=== PATIENT | male | born 1975 | race Caucasian/White ===

== ENCOUNTER 2016-08-19 19:52 | Emergency (ER) | payer SELFPAY ==
[2016-08-19 20:10] VITALS: BP 172/96
[2016-08-19] MEDS ORDERED: LORazepam TAB(*) 1 MG PO ONE (20:50)
--- NOTE | 2016-08-19 21:15 | UC ---
Shortness of Breath HPI - HPI Summary HPI Summary: 4 DAYS OF WAXING AND WANING MID STERNAL "CHEST BURNING". WHOLE BODY FEELS FLUSHED. HAS SOB AT REST - WORSE WITH EXERTION. NO NAUSEA, DIAPHORESIS, NUMBNESS OR TINGLING. STATES HE HAS HAD THIS BEFORE AND TAKES LORAZEPAM WHICH HELPS. DIAGNOSED WITH ANXIETY. TAKES IT RARELY. 15 TABS SINCE 10/2015. TOOK LAST PILL AT [facility] 4 DAYS AGO AND COULD NOT GET INTO PCP. DRINKS ABOUT 12 BEERS DAILY. TODAY ONLY HAD 4. DENIES ANY H/O DTs. IS NOT TREMULOUS. - History of Current Complaint Chief Complaint: UCChestPain Stated Complaint: CHEST BURNING Time Seen by Provider: 08/19/16 20:32 Hx Obtained From: Patient Onset/Duration: Sudden Onset, Lasting Days, Still Present Timing: Constant Current Severity: Moderate Dyspnea At: Rest Aggrevating Factors: Movement Associated Signs & Symptoms: Negative: Cough (Productive), Cough (Nonproductive) , Cough (Bloody Sputum), Wheezing, Chest Pain w/Cough, Chest Pain Unrelated to Cough, Fever, Chills, Diaphoresis, Dizzy - Allergy/Home Medications Allergies/Adverse Reactions: Allergies Allergy/AdvReac Type Severity Reaction Status Date / Time No Known Allergies Allergy Verified 08/19/16 20:10 PMH/Surg Hx/FS Hx/Imm Hx Endocrine History Of: Denies: Diabetes, Thyroid Disease Cardiovascular History Of: Denies: Cardiac Disorders, Hypertension, Pacemaker/ICD, Myocardial Infarction Respiratory History Of: Denies: COPD, Asthma GI/ History Of: Denies: Gastroesophageal Reflux, Ulcer, Renal Disease Neurological History Of: Denies: CVA, Dementia, Seizures Psychological History Of: Reports: Anxiety Other History Of: Negative For: Anticoagulant Therapy - Surgical History Surgical History: Yes Surgery Procedure, Year, and Place: RIGHT pinky finger - Family History Known Family History: Positive: Hypertension - Social History Alcohol Use: Daily Alcohol Amount: 12 pack per day Substance Use Type: Marijuana Substance Use Comment - Amount & Last Used: 1-2 TIMES/WEEK Smoking Status (MU): Current Every Day Smoker Type: Cigarettes Amount Used/How Often: 1 ppd Length of Time of Smoking/Using Tobacco: 23 years Have You Smoked in the Last Year: Yes Household Exposure Type: Cigarettes - Immunization History Most Recent Tetanus Shot: Up to date Review of Systems Constitutional: Negative Skin: Other - FLUSHED Respiratory: Shortness Of Breath Cardiovascular: Chest Pain Psychological: Anxious All Other Systems Reviewed And Are Negative: Yes Physical Exam Triage Information Reviewed: Yes Appearance: Well-Nourished, Pain Distress - MODERATE PAIN. PT CLUTCHING CHEST AND BREATHING HEAVILY Vital Signs: Initial Vital Signs Temp 98.5 F 08/19/16 20:06 Pulse 92 08/19/16 20:06 Resp 18 08/19/16 20:06 BP 172/96 08/19/16 20:06 Pulse Ox 95 08/19/16 20:06 Vital Signs Reviewed: Yes Eyes: Positive: Conjunctiva Clear ENT: Positive: Hearing grossly normal Neck: Positive: Supple, Nontender, No Lymphadenopathy Respiratory: Positive: Lungs clear, Normal breath sounds, Other: - BREATHING HEAVILY Cardiovascular: Positive: Tachycardia Abdomen Description: Positive: Nontender, Soft Musculoskeletal: Positive: No Edema Neurological: Positive: Alert Psychological: Positive: Age Appropriate Behavior Skin: Positive: Other - FACE FLUSHED BUT NOT DIAPHORETIC OR CLAMMY Diagnostics - EKG Cardiac Rate: NL - 93 BPM Cardiac Rhythm: Sinus: Normal Ectopy: PVCs ST Segment: Normal - CONSIDERABLE ARTIFACT NOTED Shortness of Breath Dx - Course Course Of Treatment: ADVISED TRASNFER TO ER GIVEN CONCERN FOR CARDIAC/ RESPIRATORY PATHOLOGY. PT STATES HE HAS HAD THIS BEFORE AND HAD A W/U. DIAGNOSED WITH ANXIETY AND GIVEN LORAZEPAM WHICH HELPS. IS DECLINING TRANSFER TO ER. DISCUSSED POSSIBLE POOR OUTCOMES INCLUDING FOR FAILURE TO GO TO ER IMMEDIATELY. PT VOICES UNDERSTANDING AND CONTINUES TO DECLINE. - Differential Dx/Diagnosis Provider Diagnoses: DYSPNEA/CHEST TIGHTNESS/ANXIETY Discharge - Discharge Plan Condition: Stable Disposition: AGAINST MEDICAL ADVICE Prescriptions: LORazepam TAB(*) [Ativan 1 MG TAB (*)] 1 mg PO Q8H PRN #12 tab MDD 3 PRN Reason: Anxiety Patient Education Materials: Dyspnea (ED) Additional Instructions: YOUR PRESENTATION IS CONCERNING FOR CARDIAC/RESPIRATORY INVOLVEMENT AND REQUIRES ER EVALUATION. YOU HAVE DECLINED. PLEASE GO TO THE ER WITHOUT FAIL IF YOUR SYMPTOMS DO NOT RESOLVE WITH THE ATIVAN YOU EXPECT. FOLLOW-UP WITH YOUR PCP DR. NAVA IN [place].
== END 2016-08-19 21:03 | disposition left against medical advice (07) ==
LOC: UCEAST 19:52
DX: R06.00 Dyspnea, unspecified (principal); R07.89 Other chest pain; F41.9 Anxiety disorder, unspecified; F17.210 Nicotine dependence, cigarettes, uncomplicated
CPT/HCPCS: 93005; 99212; A9270-GY; G0463

== ENCOUNTER 2016-10-11 11:23 | Emergency (ER) | payer SELFPAY ==
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
[2016-10-11 12:04] VITALS: BP 159/107
== END 2016-10-11 12:00 | disposition left against medical advice (07) ==
LOC: UCEAST 11:23
DX: Z72.0 Tobacco use (principal); R55 Syncope and collapse; F10.20 Alcohol dependence, uncomplicated; R07.9 Chest pain, unspecified; Z53.20 Procedure and treatment not carried out because of patient's decision for unspecified reasons
CPT/HCPCS: 99212; G0463

== ENCOUNTER 2016-10-11 12:24 | Emergency (ER) | payer SELFPAY ==
[2016-10-11] MEDS ORDERED: Aspirin Low Dose CHEW TAB* 81 MG PO ONE (13:01)
--- NOTE | 2016-10-11 13:28 | RAD ---
INDICATION: Chest pain COMPARISON: Similar chest x-ray dated November 03, 2015 TECHNIQUE: Single AP portable view of the chest was obtained. FINDINGS: Image quality is compromised due to the relative inferiority of a portable chest x-ray. The heart and mediastinum exhibit normal size and contour. The lungs are grossly clear. There is no evidence of a large pleural effusion. Visualized bones are normal for the patient's age. IMPRESSION: No radiographic evidence for acute cardiopulmonary abnormality on this portable chest x-ray.
[2016-10-11 13:41] LABS: Hematocrit 49 % (42-52); Hemoglobin 16.7 g/dl (14.0-18.0); Mean Corpuscular HGB Conc 34 g/dl (31-36); Mean Corpuscular Hemoglobin 33 pg (27-31); Mean Corpuscular Volume 97 fL (80-94); Mean Platelet Volume 7 um3 (7.4-10.4); Red Blood Count 5.05 10^6/ul (4.0-5.4); Red Cell Distribution Width 12 % (10.5-15)
[2016-10-11 13:56] LABS: Albumin 4.1 g/dL (3.2-5.2); BUN/Creatinine Ratio 9.2 (8-20); Calcium 9.4 mg/dL (8.6-10.3); EGFR African American 123.2 (>60); EGFR Non-African American 95.8 (>60); Globulin 3.1 g/dL (2-4); Magnesium 2.2 mg/dL (1.9-2.7); Potassium 4.2 mmol/L (3.5-5.0); Total Bilirubin 0.6 mg/dL (0.2-1.0); Total Protein 7.2 g/dL (6.4-8.9)
[2016-10-11 13:58] LABS: Troponin I 0.01 ng/mL (<0.04)
[2016-10-11 14:37] LABS: TSH (Thyroid Stimulating Horm) 2.31 mcIU/mL (0.34-5.60)
[2016-10-11 17:13] VITALS: BP 120/76
--- NOTE | 2016-10-11 18:08 | ED ---
Neno Srinivasan Alok, scribed for Az Bernal MD on 10/11/16 at 1312 . HPI Chest Pain - HPI Summary HPI Summary: 41M presents to the ED for syncope episode today while in his garage lasting 5 seconds. Pt reportedly was working on his car when he started to feel hot and diaphoretic. The pt then sat down and lost consciousness for what felt like 5 seconds, unwitnessed by anyone else. Pt also notes a chest burning sensation diffusely throughout his entire anterior chest which is still ongoing. Chest burning has been accompanied by SOB. Pt denies palpitations. Pt last had an episode of chest burning one year ago and was dx with anxiety. Pt smokes 1.5-2 ppd and drinks 12 beers every day. Pt additionally smokes marijuana every day. - History of Current Complaint Chief Complaint: EDChestPainROMI Time Seen by Provider: 10/11/16 12:35 Hx Obtained From: Patient Onset/Duration: Started Minutes Ago, Atraumatic, Still Present Timing: Constant - chest "burning", Lasting Seconds - syncope Initial Severity: Moderate Pain Intensity: 7 Pain Scale Used: 0-10 Numeric Chest Pain Location: Diffuse, Left Anterior, Right Anterior Character: Burning Aggravating Factor(s): Nothing Alleviating Factor(s): Nothing Associated Signs and Symptoms: Positive: Chest Pain, Shortness of Breath, Diaphoresis, Other: - syncope - Allergy/Home Medications Allergies/Adverse Reactions: Allergies Allergy/AdvReac Type Severity Reaction Status Date / Time No Known Allergies Allergy Verified 10/11/16 13:08 PMH/Surg Hx/FS Hx/Imm Hx Endocrine/Hematology History: Denies: Hx Anticoagulant Therapy, Hx Diabetes, Hx Thyroid Disease Cardiovascular History: Denies: Hx Angina, Hx Coronary Artery Disease, Hx Hypercholesterolemia, Hx Hypertension, Hx Myocardial Infarction, Hx Pacemaker/ICD, Hx Valvular Heart Disease Respiratory History: Denies: Hx Asthma, Hx Chronic Obstructive Pulmonary Disease (COPD) GI History: Denies: Hx Ulcer History: Denies: Hx Renal Disease Neurological History: Denies: Hx Dementia, Hx Seizures Psychiatric History: Reports: Hx Anxiety, Hx Substance Abuse - ETOH - Surgical History Surgery Procedure, Year, and Place: RIGHT pinky finger - Immunization History Date of Tetanus Vaccine: 2002 Date of Influenza Vaccine: none Infectious Disease History: No Infectious Disease History: Denies: Hx Clostridium Difficile, Hx Hepatitis, Hx Human Immunodeficiency Virus (HIV), Hx of Known/Suspected MRSA, Hx Shingles, Hx Tuberculosis, Hx Known/ Suspected VRE, Hx Known/Suspected VRSA, History Other Infectious Disease, Traveled Outside the [place] in Last 30 Days - Family History Known Family History: Positive: Hypertension Negative: Cardiac Disease, Diabetes - Social History Occupation: Employed Full-time Lives: With Family Alcohol Use: Daily - He drinks now a 6 pack a day down from a 30 pack of beer/ day. Alcohol Amount: 12 pack per day Substance Use Type: Reports: Marijuana Substance Use Comment - Amount & Last Used: 1-2 TIMES/WEEK Smoking Status (MU): Current Every Day Smoker Type: Cigarettes Amount Used/How Often: 1.5-2 ppd Length of Time of Smoking/Using Tobacco: 23 years Have You Smoked in the Last Year: Yes Review of Systems Positive: Skin Diaphoresis. Negative: Fever Positive: Chest Pain. Negative: Palpitations Positive: Shortness Of Breath Positive: Syncope All Other Systems Reviewed And Are Negative: Yes Physical Exam - Summary Physical Exam Summary: VITAL SIGNS: Reviewed. GENERAL: Patient is a well-developed and nourished male who is lying comfortable in the stretcher. Patient is not in any acute respiratory distress. HEAD AND FACE: No signs of trauma. No ecchymosis, hematomas or skull depressions. No sinus tenderness. EYES: PERRLA, EOMI x 2, No injected conjunctiva, no nystagmus. EARS: Hearing grossly intact. Ear canals and tympanic membranes are within normal limits. MOUTH: Oropharynx within normal limits. NECK: Supple, trachea is midline, no adenopathy, no JVD, no carotid bruit, no c- spine tenderness, neck with full ROM. CHEST: Symmetric, no tenderness at palpation LUNGS: Clear to auscultation bilaterally. No wheezing or crackles. CVS: Regular rate and rhythm, S1 and S2 present, no murmurs or gallops appreciated. ABDOMEN: Soft, non-tender. No signs of distention. No rebound no guarding, and no masses palpated. Bowel sounds are normal. EXTREMITIES: FROM in all major joints, no edema, no cyanosis or clubbing. NEURO: Alert and oriented x 3. No acute neurological deficits. Speech is normal and follows commands. SKIN: Dry and warm Triage Information Reviewed: Yes Vital Signs On Initial Exam: Initial Vitals Temp Pulse Resp BP Pulse Ox 98.1 F 98 20 146/100 98 10/11/16 12:30 10/11/16 12:30 10/11/16 12:30 10/11/16 12:30 10/11/16 12:30 Vital Signs Reviewed: Yes Diagnostics - Vital Signs Vital Signs Temp Pulse Resp BP Pulse Ox 10/11/16 12:30 98.1 F 98 20 146/100 98 - Laboratory Lab Results: Lab Results 10/11/16 10/11/16 10/11/16 Range/Units 13:32 13:32 13:32 WBC 11.0 H (3.5-10.8) 10^3/ul RBC 5.05 (4.0-5.4) 10^6/ul Hgb 16.7 (14.0-18.0) g/dl Hct 49 (42-52) % MCV 97 H (80-94) fL MCH 33 H (27-31) pg MCHC 34 (31-36) g/dl RDW 12 (10.5-15) % Plt Count 254 (150-450) 10^3/ul MPV 7 L (7.4-10.4) um3 Neut % (Auto) 77.3 (38-83) % Lymph % (Auto) 13.9 L (25-47) % Tensas % (Auto) 7.0 (1-9) % Eos % (Auto) 0.5 (0-6) % Baso % (Auto) 1.3 (0-2) % Absolute Neuts (auto) 8.5 H (1.5-7.7) 10^3/ul Absolute Lymphs (auto) 1.5 (1.0-4.8) 10^3/ul Absolute Monos (auto) 0.8 (0-0.8) 10^3/ul Absolute Eos (auto) 0.1 (0-0.6) 10^3/ul Absolute Basos (auto) 0.1 (0-0.2) 10^3/ul Absolute Nucleated RBC 0 10^3/ul Nucleated RBC % 0 APTT 29.9 (26.0-36.3) seconds Sodium 131 L (133-145) mmol/L Potassium 4.2 (3.5-5.0) mmol/L Chloride 100 L (101-111) mmol/L Carbon Dioxide 25 (22-32) mmol/L Anion Gap 6 (2-11) mmol/L BUN 8 (6-24) mg/dL Creatinine 0.87 (0.67-1.17) mg/dL Est GFR ( Amer) 123.2 (>60) Est GFR (Non-Af Amer) 95.8 (>60) BUN/Creatinine Ratio 9.2 (8-20) Glucose 94 (70-100) mg/dL Lactic Acid (0.5-2.0) mmol/L Calcium 9.4 (8.6-10.3) mg/dL Magnesium 2.2 (1.9-2.7) mg/dL Total Bilirubin 0.60 (0.2-1.0) mg/dL AST 28 (13-39) U/L ALT 29 (7-52) U/L Alkaline Phosphatase 61 (34-104) U/L Total Creatine Kinase 182 (10-223) U/L CK-MB (CK-2) 3.9 (0.6-6.3) ng/mL Troponin I 0.01 (<0.04) ng/mL B-Natriuretic Peptide ( - 100) pg/mL Total Protein 7.2 (6.4-8.9) g/dL Albumin 4.1 (3.2-5.2) g/dL Globulin 3.1 (2-4) g/dL Albumin/Globulin Ratio 1.3 (1-3) TSH 2.31 (0.34-5.60) mcIU/mL 10/11/16 10/11/16 10/11/16 Range/Units 13:32 13:32 16:05 WBC (3.5-10.8) 10^3/ul RBC (4.0-5.4) 10^6/ul Hgb (14.0-18.0) g/dl Hct (42-52) % MCV (80-94) fL MCH (27-31) pg MCHC (31-36) g/dl RDW (10.5-15) % Plt Count (150-450) 10^3/ul MPV (7.4-10.4) um3 Neut % (Auto) (38-83) % Lymph % (Auto) (25-47) % Tensas % (Auto) (1-9) % Eos % (Auto) (0-6) % Baso % (Auto) (0-2) % Absolute Neuts (auto) (1.5-7.7) 10^3/ul Absolute Lymphs (auto) (1.0-4.8) 10^3/ul Absolute Monos (auto) (0-0.8) 10^3/ul Absolute Eos (auto) (0-0.6) 10^3/ul Absolute Basos (auto) (0-0.2) 10^3/ul Absolute Nucleated RBC 10^3/ul Nucleated RBC % APTT (26.0-36.3) seconds Sodium (133-145) mmol/L Potassium (3.5-5.0) mmol/L Chloride (101-111) mmol/L Carbon Dioxide (22-32) mmol/L Anion Gap (2-11) mmol/L BUN (6-24) mg/dL Creatinine (0.67-1.17) mg/dL Est GFR ( Amer) (>60) Est GFR (Non-Af Amer) (>60) BUN/Creatinine Ratio (8-20) Glucose (70-100) mg/dL Lactic Acid 1.1 (0.5-2.0) mmol/L Calcium (8.6-10.3) mg/dL Magnesium (1.9-2.7) mg/dL Total Bilirubin (0.2-1.0) mg/dL AST (13-39) U/L ALT (7-52) U/L Alkaline Phosphatase (34-104) U/L Total Creatine Kinase (10-223) U/L CK-MB (CK-2) (0.6-6.3) ng/mL Troponin I 0.01 (<0.04) ng/mL B-Natriuretic Peptide 26 ( - 100) pg/mL Total Protein (6.4-8.9) g/dL Albumin (3.2-5.2) g/dL Globulin (2-4) g/dL Albumin/Globulin Ratio (1-3) TSH (0.34-5.60) mcIU/mL Result Diagrams: 10/11/16 13:32 10/11/16 13:32 Lab Statement: Any lab studies that have been ordered have been reviewed, and results considered in the medical decision making process. - Radiology CXR Xray Interpretation: Positive (See Comments) - IMPRESSION: No radiographic evidence for acute cardiopulmonary abnormality on this portable chest x-ray. Radiology Interpretation Completed By: Radiologist - EKG 1237 Cardiac Rate: NL - 86 bpm EKG Rhythm: Sinus Rhythm EKG Interpretation: No ST elevations Chest Pain Course/Dx - Course Course Of Treatment: 41M presents to the ED for syncope episode today while in his garage lasting 5 seconds. Pt reportedly was working on his car when he started to feel hot and diaphoretic. The pt then sat down and lost consciousness for what felt like 5 seconds, unwitnessed by anyone else. Pt also notes a chest burning sensation diffusely throughout his entire anterior chest which is still ongoing. Chest burning has been accompanied by SOB. Pt denies palpitations. Pt last had an episode of chest burning one year ago and was dx with anxiety. Pt smokes 1.5-2 ppd and drinks 12 beers every day. Pt additionally smokes marijuana every day. Blood work within nml limits except WBC 11 H. 1st Troponin shows 0.01 while 2nd Troponin taken shows 0.01 as well. Pt was given IV fluids and rehydrated. Afterward pt has no futher complaints and is asymtomatic. Will discharge home with dx of vasovagal syncope and instructions to FU with PCP. - Chest Pain Differential Diagnosis/HQI/PQRI: Angina, CHF, Chest Wall, GI Disease, Other: - Syncope - Diagnoses Provider Diagnoses: Vasovagal syncope Discharge - Discharge Plan Condition: Stable Disposition: HOME Patient Education Materials: Syncope (ED) Referrals: No Primary Care Phys,NOPCP [Primary Care Provider] - [facility] [place] PHYSICIAN REFERRAL [Outside] The documentation as recorded by the Neno castaneda Alok accurately reflects the service I personally performed and the decisions made by me, Az Bernal MD.
== END 2016-10-11 17:12 | disposition home or self-care (01) ==
LOC: ED 12:24
DX: R55 Syncope and collapse (principal); R07.9 Chest pain, unspecified; R06.02 Shortness of breath
CPT/HCPCS: 36415; 71010; 80053; 82550; 82553; 83605; 83735; 83880; 84443; 84484; 85025; 85730; 93005; 99283; A9270-GY

== ENCOUNTER 2018-03-01 12:25 | Emergency (ER) | payer SELFPAY ==
[2018-03-01] MEDS ORDERED: NS 0.9% 1000 ML* 1,000 ML IV ONE (12:34)
[2018-03-01 12:40] VITALS: BP 159/120
--- NOTE | 2018-03-01 12:46 | UC ---
Cardiac HPI - HPI Summary HPI Summary: 42 yo male presents with chest pain for the last 4 days. Initially it started as a mild ache in his epigastric area. Earlier today he developed significantly worse pain and discomfort that he has difficulty describing. The pain is now located in the epigastric area and radiates to the left and right. Has been getting worse since this morning. 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 He feels mildly short of breath and tightness in his throat. He denies fever, chills, n/v /d, dizziness. He smokes daily and has a history of alcohol abuse. - History of Current Complaint Chief Complaint: UCChestPain Stated Complaint: CHEST PAIN Time Seen by Provider: 03/01/18 12:26 Hx Obtained From: Patient Onset/Duration: Sudden Onset Initial Severity: Moderate Current Severity: Severe Pain Intensity: 10 - Allergy/Home Medications Allergies/Adverse Reactions: Allergies Allergy/AdvReac Type Severity Reaction Status Date / Time No Known Allergies Allergy Verified 10/11/16 13:08 PMH/Surg Hx/FS Hx/Imm Hx Psychological History: Anxiety Other History Of: Negative For: Anticoagulant Therapy - Surgical History Surgical History: Yes Surgery Procedure, Year, and Place: RIGHT pinky finger - Family History Known Family History: Positive: Hypertension Negative: Cardiac Disease, Diabetes - Social History Occupation: Employed Full-time Lives: With Family Alcohol Use: Daily Alcohol Amount: 12 pack per day Substance Use Type: Marijuana Substance Use Comment - Amount & Last Used: 1-2 TIMES/WEEK Smoking Status (MU): Current Every Day Smoker Type: Cigarettes Amount Used/How Often: 1.5-2 ppd Length of Time of Smoking/Using Tobacco: 23 years Have You Smoked in the Last Year: Yes Household Exposure Type: Cigarettes - Immunization History Most Recent Tetanus Shot: Up to date Review of Systems Constitutional: Negative Skin: Negative Eyes: Negative ENT: Negative Respiratory: Shortness Of Breath Cardiovascular: Chest Pain Gastrointestinal: Abdominal Pain Genitourinary: Negative Neurovascular: Negative Neurological: Negative Psychological: Negative All Other Systems Reviewed And Are Negative: Yes Physical Exam - Summary Physical Exam Summary: GENERAL: Appears anxious. Obese. Diaphoretic SKIN: No rashes, sores, lesions, or open wounds. NECK: Supple. Nontender. Airway patent CHEST: CTAB. No r/r/w. No accessory muscle use. CV: Tachycardia. Without m/r/g. Pulses intact. Cap refill <2seconds ABDOMEN: Soft. Mild TTP epigastrum. No CVA tenderness. Bowel sounds present NEURO: Alert. PSYCH: Anxious Triage Information Reviewed: Yes Vital Signs: Initial Vital Signs Temp 99.2 F 03/01/18 12:34 Pulse 112 03/01/18 12:34 Resp 16 03/01/18 12:34 BP 159/120 03/01/18 12:34 Pulse Ox 99 03/01/18 12:34 Vital Signs Reviewed: Yes - Assessment/Plan Course Of Treatment: EKG sinus tach a 107bpm. Inferior q waves. No ST changes as read by Dr. Villagomez. Left arm BP: 159/120. Right arm BP: 198/101. The ddx of his pain is quite extensive. I am most concerned about ACS, aortic dissection , PE, hepatitis, pancreatitis, or other biliary pathology. Report called to Marti LAZO in ED at 1235. An IV was started and ambulance called. 1L NS started by EMS and pt left via ambulance in stable condition. - Clinical Impression Provider Diagnoses: Chest pain. Abnormal EKG. Elevated BP Discharge - Sign-Out/Discharge Documenting (check all that apply): Patient Departure All imaging exams completed and their final reports reviewed: No Studies - Discharge Plan Condition: Stable Disposition: TRANS HIGHER LVL OF CARE FAC Referrals: No Primary Care Phys,NOPCP [Primary Care Provider] - - Billing Disposition and Condition Condition: STABLE Disposition: Trans Higher Lvl of Care Fac
== END 2018-03-01 12:56 | disposition short-term general hospital (02) ==
LOC: UCEAST 12:25
DX: R07.89 Other chest pain (principal); R00.0 Tachycardia, unspecified; R03.0 Elevated blood-pressure reading, without diagnosis of hypertension; F17.210 Nicotine dependence, cigarettes, uncomplicated
CPT/HCPCS: 93005; 99213; G0463

== ENCOUNTER 2018-03-01 13:20 | Observation (INO) | payer SELFPAY ==
--- NOTE | 2018-03-01 14:00 | ED ---
Abdominal Pain/Male - HPI Summary HPI Summary: Patient is a 42-year-old male with significant alcohol use over the past several years and smoking history presenting to the ED with CC of abdomen doubling in size over the past 4 months. He states he drinks approximately a 12 pack a day. Endorses approximately 10 cigarettes per day which she has cut back from 2 packs per day recently and has smoked for 20 years. Denies any other significant PMH. He endorses some chest pressure which is worse with sitting due to E distended abdomen pressing on the diaphragm. Denies any chest pain while standing up. Denies any shortness of breath. Denies any neck pain, headache, visual disturbances. He denies any nausea, vomiting, diarrhea, constipation. Denies any odynophagia or dysphagia. He continues to eat and drink well. He denies changing his diet in any way. He is unsure if he has gained weight as he has not checked. He denies any fevers, sweats, chills. He was seen at urgent care earlier this morning and was sent over here for further evaluation due to his distended and painful abdomen. - History of Current Complaint Chief Complaint: EDAbdPain Stated Complaint: CHEST PAIN Time Seen by Provider: 03/01/18 13:22 Hx Obtained From: Patient Onset/Duration: Gradual Onset Timing: Constant Severity Initially: Severe Severity Currently: Severe Pain Intensity: 5 Pain Scale Used: 0-10 Numeric Location: Other - abdomen Radiates: No Aggravating Factor(s): Nothing Alleviating Factor(s): Nothing Associated Signs And Symptoms: Negative: Constipation, Blood in Stool, Urinary Symptoms, Decreased Appetite, Vomiting, Diarrhea - Risk Factors Testicular Torsion: Negative Cardiac Risk Factors: Negative - Allergies/Home Medications Allergies/Adverse Reactions: Allergies Allergy/AdvReac Type Severity Reaction Status Date / Time No Known Allergies Allergy Verified 10/11/16 13:08 Home Medications: Home Medications LORazepam TAB(*) [Ativan 1 MG TAB (*)] 1 mg PO Q8H PRN 03/01/18 [History Confirmed 03/01/18] PMH/Surg Hx/FS Hx/Imm Hx Previously Healthy: Yes Endocrine/Hematology History: Denies: Hx Anticoagulant Therapy, Hx Diabetes, Hx Thyroid Disease Cardiovascular History: Denies: Hx Angina, Hx Coronary Artery Disease, Hx Hypercholesterolemia, Hx Hypertension, Hx Myocardial Infarction, Hx Pacemaker/ICD, Hx Valvular Heart Disease Respiratory History: Denies: Hx Asthma, Hx Chronic Obstructive Pulmonary Disease (COPD) GI History: Denies: Hx Ulcer History: Denies: Hx Renal Disease Neurological History: Denies: Hx Dementia, Hx Seizures Psychiatric History: Reports: Hx Anxiety, Hx Substance Abuse - ETOH - Surgical History Surgery Procedure, Year, and Place: RIGHT pinky finger - Immunization History Date of Tetanus Vaccine: 2002 Date of Influenza Vaccine: none Hx Pertussis Vaccination: No Immunizations Up to Date: Yes Infectious Disease History: No Infectious Disease History: Denies: Hx Clostridium Difficile, Hx Hepatitis, Hx Human Immunodeficiency Virus (HIV), Hx of Known/Suspected MRSA, Hx Shingles, Hx Tuberculosis, Hx Known/ Suspected VRE, Hx Known/Suspected VRSA, History Other Infectious Disease, Traveled Outside the [place] in Last 30 Days - Family History Known Family History: Positive: Hypertension Negative: Cardiac Disease, Diabetes - Social History Occupation: Employed Full-time Lives: With Family Alcohol Use: Daily Alcohol Amount: 12 pack per day Hx Substance Use: Yes Substance Use Type: Reports: Marijuana Substance Use Comment - Amount & Last Used: 1-2 TIMES/WEEK Hx Tobacco Use: Yes Smoking Status (MU): Current Every Day Smoker Type: Cigarettes Amount Used/How Often: 1.5-2 ppd Length of Time of Smoking/Using Tobacco: 23 years Have You Smoked in the Last Year: Yes Review of Systems Negative: Fever, Chills, Fatigue, Skin Diaphoresis Negative: Photophobia, Blurred Vision Negative: Palpitations, Chest Pain Negative: Shortness Of Breath Positive: Abdominal Pain, Other - severe distension. Negative: Vomiting, Diarrhea, Nausea Genitourinary: Negative Positive: no symptoms reported, see HPI Negative: Arthralgia, Myalgia Negative: Rash, Bruising Negative: Headache, Weakness, Paresthesia, Numbness Positive: Anxious All Other Systems Reviewed And Are Negative: Yes Physical Exam Triage Information Reviewed: Yes Vital Signs On Initial Exam: Initial Vitals Pulse Resp BP Pulse Ox 113 27 186/116 98 03/01/18 13:17 03/01/18 13:17 03/01/18 13:17 03/01/18 13:17 Vital Signs Reviewed: Yes Appearance: Positive: No Pain Distress, Well-Nourished Skin: Positive: Warm, Skin Color Reflects Adequate Perfusion Head/Face: Positive: Normal Head/Face Inspection Eyes: Positive: EOMI, GLORIA, Conjunctiva Clear Neck: Positive: Supple, No Lymphadenopathy Respiratory/Lung Sounds: Positive: Clear to Auscultation, Breath Sounds Present Cardiovascular: Positive: RRR, Pulses are Symmetrical in both Upper and Lower Extremities Abdomen Description: Positive: Distended - severe distension, unable to assess for ascites as patient is unable to lie flat or sit Musculoskeletal: Positive: Strength/ROM Intact Neurological: Positive: Sensory/Motor Intact, Alert, Oriented to Person Place, Time, Speech Normal Psychiatric: Positive: Anxious Diagnostics - Vital Signs Vital Signs Temp Pulse Resp BP Pulse Ox 03/01/18 13:31 109 20 98 03/01/18 13:22 99.5 F 107 26 186/116 99 03/01/18 13:17 113 27 186/116 98 - Laboratory Result Diagrams: 03/01/18 13:55 03/01/18 13:55 Lab Statement: Any lab studies that have been ordered have been reviewed, and results considered in the medical decision making process. Re-Evaluation - Re-Evaluation First Eval Re-Evaluation Time: 19:00 Change: Unchanged Comment: CP radiating to throat, 5/10 intensity Abdominal Pain Fem Course/Dx - Course Course Of Treatment: During the course of treatment, the patient is evaluated for distended abdomen. Labs obtained. CT abdomen and pelvis with contrast obtained. He is unable to sit down for an evaluation as he is having abdominal pain and distention. Abdomen is very rigid on physical exam, bowel sounds are decreased throughout. Lungs CTA, RRR. Patient appears diaphoretic and tearful on arrival. Has a history of anxiety, took Ativan prior to arrival which did not improve his anxiety symptoms. CT abd/pelvis: IMPRESSION: 1. NO EVIDENCE FOR ACUTE FINDING OR CAUSE FOR THE PATIENT'S ABDOMINAL PAIN IS SEEN. 2. HEPATIC STEATOSIS. Signed out to Dr. Vizcarra at 5:45p pending CXR and US of the gallbladder. - Diagnoses Provider Diagnoses: Chest pain, unspecified Discharge - Sign-Out/Discharge Documenting (check all that apply): Patient Departure Signing out patient TO: Sarthak Vizcarra All imaging exams completed and their final reports reviewed: Yes - Discharge Plan Condition: Fair Disposition: ADMITTED TO [facility] - Billing Disposition and Condition Condition: FAIR Disposition: Admitted to [facility]
[2018-03-01 14:03] LABS: ABS Basophils 0.1 10^3/ul (0-0.2); ABS Eosinophils 0 10^3/ul (0-0.6); ABS Lymphocytes 1.2 10^3/ul (1.0-4.8); ABS Monocytes 0.6 10^3/ul (0-0.8); ABS Neutrophils 7.7 10^3/ul (1.5-7.7); ABS Nucleated RBC 0 10^3/ul; Eosinophil % 0.4 % (0-6); Hematocrit 48 % (42-52); Hemoglobin 16.9 g/dl (14.0-18.0); Lymphocyte % 12.1 % (25-47); Mean Corpuscular HGB Conc 35 g/dl (31-36); Mean Corpuscular Hemoglobin 34 pg (27-31); Mean Corpuscular Volume 97 fL (80-94); Mean Platelet Volume 6.8 fL (7.4-10.4); Nucleated Red Blood Cells % 0.1; Platelet Count 245 10^3/ul (150-450); Red Blood Count 4.95 10^6/ul (4.00-5.40); Red Cell Distribution Width 13 % (10.5-15); White Blood Count 9.6 10^3/ul (3.5-10.8)
[2018-03-01 14:08] LABS: INR 0.96 (0.77-1.02)
[2018-03-01 14:23] LABS: EGFR Non-African American 92.9 (>60)
[2018-03-01] MEDS ORDERED: Iohexol 300* (CONTRAST) 10 ML SDV IV ONE (14:48)
[2018-03-01 16:50] LABS: Urine Appearance Clear; Urine Blood Negative (Negative); Urine Color Yellow; Urine Ketones 1+ (Negative); Urine Protein Negative (Negative); Urine Specific Gravity 1.017 (1.010-1.030); Urine Urobilinogen Negative (Negative)
[2018-03-01] MEDS: oxyCODONE/Acetamin 5/325 MG* TAB PO ONE ×2 (17:50→17:57)
[2018-03-01] MEDS ORDERED: Metoprolol Tartrate IV* 1 MG/ML 5 ML VIAL IV ONE (19:02)
[2018-03-01] MEDS ORDERED: Nitroglycerin TAB 0.4 MG* 0.4 MG TAB SL ONE (19:06)
[2018-03-01] MEDS ORDERED: Aspirin 81 mg CHEW TAB* 81 MG TAB.CHEW PO ONE (19:06)
--- NOTE | 2018-03-01 19:12 | ED ---
Progress - Progress Note Progress Note: Receiving sign out pending imaging results. His abdomen/pelvis CT revealed: 1. no evidence for acute finding or cause for the patient's abdominal pain is seen 2. hepatic steatosis. His gallbladder US revealed no acute sonographic pathology. His CXR revealed: at 19:00 upon re-eval he had CP radiating to his throat which he rates as a 5/ 10. He has a strong FHx of CAD reflected in the UC note. His diagnosis is CP- unspecified. He will be admitted to Dr. Ramirez hospitalist. - EKG/XRAY/CT EKG: NSR - 86 Comments: at 18:48 the EKG revealed normal sinus rhtyhm at 86 bpm. Re-Evaluation - Re-Evaluation First Eval Re-Evaluation Time: 19:00 Change: Unchanged Comment: CP radiating to throat, 5/10 intensity Course/Dx - Course Course Of Treatment: Receiving sign out pending imaging results. His EKG was normal. His abdomen/pelvis CT revealed: 1. no evidence for acute finding or cause for the patient's abdominal pain is seen 2. hepatic steatosis. His gallbladder US revealed no acute sonographic pathology. His CXR was normal. Upon re-eval he had CP radiating to his throat which he rates as a 5/10. He has a strong FHx of CAD reflected in the UC note. His diagnosis is CP-unspecified. He will be admitted to Dr. Sesay. - Diagnoses Provider Diagnoses: Chest pain, unspecified - Provider Notifications Discussed Care Of Patient With: Selena Sesay Time Discussed With Above Provider: 19:00 Instructed by Provider To: Admit As Inpatient Discharge - Sign-Out/Discharge Documenting (check all that apply): Patient Departure - Admit - Discharge Plan Condition: Fair Disposition: ADMITTED TO [facility] - Attestation Statements Document Initiated by Scribe: Yes Documenting Scribe: Wilmer Vazquez Provider For Whom Scribe is Documenting (Include Credential): Sarthak Vizcarra MD Scribe Attestation: Wilmer Srinivasan, scribed for Sarthak Vizcarra MD on 03/01/18 at 2022.
[2018-03-01] MEDS ORDERED: Nitroglycerin 2% OINT* 1 GM PAK ONE (20:10)
[2018-03-01] MEDS: Nitroglycerin 2% OINT* 1 GM PAK TOPICAL SCH (20:18)
[2018-03-01] MEDS ORDERED: hydrALAZINE IV* 20 MG/ML VIAL IV SLOW PU PRN (20:57)
[2018-03-01] MEDS ORDERED: LORazepam TAB(*) 1 MG PO SCH (21:00)
[2018-03-01] MEDS: Folic Acid TAB* 1 MG PO SCH (21:27)
[2018-03-01] MEDS: Multivitamins/Minerals TAB PO SCH (21:27)
[2018-03-01] MEDS: Thiamine TAB* 100 MG TAB PO SCH (21:27)
--- NOTE | 2018-03-01 22:20 | ADMNOTE ---
Subjective Date of Service: 03/01/18 Interval History: code status full this is an admission h/p hpi this is a 42 yr old wm with hx of chronic etoh dep will consume 12 beers daily family hx of htn presented to er with c/o of chest pain radiating to his throat since last . his symptom did not improve ---> went to urgent---> transfer here afterwards. pain described as sharp to pressured type pushing towards his throat constantly starting last . pain level has been 5---> 9/10. sitting down will make it worse lying flat and standing up makes it better. pain has been associated with sob. intial ekg and 2 trop were neg ---> got asa and sl nitro from er. phx chronic etoh consumption with 12 tall beers daily last drink was yesterday at 8 pm no hx of pancreatitis or etoh withdraw sz cig smoker 10 cig daily morbid obesity marijuana use pshx hx of finger fx due to trauma social hx cig 10 cig daily etoh 12 beers daily tall uses daily marijuana use works as a painter and body mechanic apprentice fhx htn Family History: Findings - htn Social History: Findings - as above Past Medical History: Findings - as above Review of Systems - Measurements Intake and Output: Intake and Output Last 24 Hours 02/27/18 02/28/18 03/01/18 03/02/18 07:59 06:59 06:59 06:59 Intake Total 0 Balance 0 Weight 275 lb 4.8 oz Intake: IV Fluids 0 fluids 0 pertinent as hpi - Review of Systems General Comments: pertinent as per hpi Objective Active Medications: Folic Acid (Folvite Tab*) 1 mg PO DAILY [facility] Last Admin: 03/01/18 21:27 Dose: 1 mg Hydralazine HCl (Apresoline Iv*) 5 mg IV SLOW PU Q6H PRN PRN Reason: BLOOD PRESSURE Lorazepam (Ativan Tab(*)) 1 - 2 mg PO .PER WA PROTOCOL [facility]; Protocol Multivitamins/Minerals (Theragran/Minerals Tab*) 1 tab PO DAILY [facility] Last Admin: 03/01/18 21:27 Dose: 1 tab Nitroglycerin (Nitroglycerin 2% Oint*) 1 inch TOPICAL Q6H [facility]; Protocol Last Admin: 03/01/18 20:18 Dose: 1 inch Thiamine HCl (Vitamin B-1 Tab*) 100 mg PO DAILY [facility] Last Admin: 03/01/18 21:27 Dose: 100 mg Vital Signs - 8 hr 03/01/18 03/01/18 03/01/18 15:00 15:18 15:48 Temperature Pulse Rate 110 102 118 Respiratory 15 15 17 Rate Blood Pressure 145/103 138/103 (mmHg) O2 Sat by Pulse 96 97 97 Oximetry 03/01/18 03/01/18 03/01/18 16:00 16:18 16:47 Temperature Pulse Rate 106 107 101 Respiratory 16 24 12 Rate Blood Pressure 150/105 176/104 (mmHg) O2 Sat by Pulse 97 97 98 Oximetry 03/01/18 03/01/18 03/01/18 17:00 17:18 17:48 Temperature Pulse Rate 99 102 95 Respiratory 14 22 20 Rate Blood Pressure 146/123 185/99 (mmHg) O2 Sat by Pulse 99 98 97 Oximetry 03/01/18 03/01/18 03/01/18 18:00 18:18 18:48 Temperature Pulse Rate 92 88 87 Respiratory 16 20 13 Rate Blood Pressure 165/105 152/97 (mmHg) O2 Sat by Pulse 97 97 98 Oximetry 03/01/18 03/01/18 03/01/18 19:00 19:18 19:19 Temperature Pulse Rate 85 98 101 Respiratory 10 13 15 Rate Blood Pressure 185/111 201/124 (mmHg) O2 Sat by Pulse 99 99 98 Oximetry 03/01/18 03/01/18 03/01/18 19:43 19:49 20:00 Temperature Pulse Rate 90 81 93 Respiratory 10 12 14 Rate Blood Pressure 193/116 194/113 (mmHg) O2 Sat by Pulse 97 97 98 Oximetry 03/01/18 03/01/18 03/01/18 20:04 20:19 20:34 Temperature Pulse Rate 84 77 82 Respiratory 9 12 13 Rate Blood Pressure 178/120 183/109 177/112 (mmHg) O2 Sat by Pulse 96 95 Oximetry 03/01/18 03/01/18 20:59 21:32 Temperature 98.3 F 97.5 F Pulse Rate 83 91 Respiratory 16 18 Rate Blood Pressure 187/110 166/99 (mmHg) O2 Sat by Pulse 97 99 Oximetry Oxygen Devices in Use Now: None, Nasal Cannula Appearance: nad Eyes: No Scleral Icterus, PERRLA Ears/Nose/Mouth/Throat: NL Teeth, Lips, Gums, Clear Oropharnyx, Mucous Membranes Moist Neck: NL Appearance and Movements; NL JVP, Trachea Midline, No Thyroid Enlargement, Masses Respiratory: Symmetrical Chest Expansion and Respiratory Effort, Clear to Auscultation Cardiovascular: NL Sounds; No Murmurs; No JVD, RRR, No Edema Abdominal: - - + bs soft + tenderness upon the epigastric area with no rebound no guarding Extremities: No Edema, - - able to raise ue and le against gravity Skin: No Rash or Ulcers Neurological: Alert and Oriented x 3, NL Sensation, NL Muscle Strength and Tone Result Diagrams: 03/02/18 06:06 03/02/18 06:06 EKG Data: ekg ns no acute st t change seen Assess/Plan/Problems-Billing Assessment: 42 yr old wm with fhx of htn but morbid obesity chronic etoh dep 12 tall beers daily presented to er with epigastric pain radiating towards to throat for four days. this pain will be better with position trop has been neg but pt is still a cig smoker - Patient Problems (1) Chest pain Current Visit: Yes Status: Acute Code(s): R07.9 - CHEST PAIN, UNSPECIFIED SNOMED Code(s): 85680190 Comment: etiology unclear but has been a cig smoker and is htn now asa 325 ordered npo after midnight for stress test echo to eval any pericardial effusion ? cardio consult (2) HTN (hypertension) Current Visit: Yes Status: Acute Code(s): I10 - ESSENTIAL (PRIMARY) HYPERTENSION SNOMED Code(s): 91849697 Comment: sbp was 170 tachycardia but after ativan prn for etoh withdraw and nitro paste went down to 150 start Norvasc, Echo ordered (3) Morbid obesity Current Visit: Yes Status: Acute Code(s): E66.01 - MORBID (SEVERE) OBESITY DUE TO EXCESS CALORIES SNOMED Code(s): 192601594 Comment: ck a1c in am ck lipid outpt sleep study (4) Cigarette smoker Current Visit: Yes Status: Acute Code(s): F17.210 - NICOTINE DEPENDENCE, CIGARETTES, UNCOMPLICATED SNOMED Code(s): 35552057 Comment: supportive care for now dep whether he is ready to quit (5) Epigastric abdominal pain Current Visit: Yes Status: Acute Code(s): R10.13 - EPIGASTRIC PAIN SNOMED Code(s): 13260407 Comment: ct of abd and abd US both neg lipase and lft neg---> ppi ordered as a trial will also start Carafate suspect ETOH related gastritis (6) History of marijuana use Current Visit: Yes Status: Acute Code(s): Z87.898 - PERSONAL HISTORY OF OTHER SPECIFIED CONDITIONS SNOMED Code(s): 835461641 Comment: supportive care (7) EtOH dependence Current Visit: Yes Status: Acute Code(s): F10.20 - ALCOHOL DEPENDENCE, UNCOMPLICATED SNOMED Code(s): 34500746 Comment: cont wam protocol
[2018-03-01] MEDS ORDERED: Omeprazole CAP* 20 MG PO ONE (23:36)
[2018-03-02] MEDS ORDERED: traMADol TAB* 50 MG PO PRN (00:35)
[2018-03-02] MEDS: Nitroglycerin 2% OINT* 1 GM PAK TOPICAL SCH ×3 (01:16→13:11)
[2018-03-02] MEDS: Aspirin EC TAB* 325 MG PO SCH ×2 (05:30→08:38)
[2018-03-02 06:25] LABS: ABS Basophils 0.1 10^3/ul (0-0.2); ABS Eosinophils 0.1 10^3/ul (0-0.6); ABS Lymphocytes 1.4 10^3/ul (1.0-4.8); ABS Monocytes 0.6 10^3/ul (0-0.8); ABS Nucleated RBC 0 10^3/ul; Eosinophil % 1.6 % (0-6); Hematocrit 44 % (42-52); Hemoglobin 15.6 g/dl (14.0-18.0); Lymphocyte % 15.4 % (25-47); Mean Corpuscular HGB Conc 35 g/dl (31-36); Mean Corpuscular Hemoglobin 34 pg (27-31); Mean Corpuscular Volume 97 fL (80-94); Mean Platelet Volume 6.8 fL (7.4-10.4); Nucleated Red Blood Cells % 0.1; Platelet Count 242 10^3/ul (150-450); Red Blood Count 4.55 10^6/ul (4.00-5.40); Red Cell Distribution Width 13 % (10.5-15); White Blood Count 9.3 10^3/ul (3.5-10.8)
[2018-03-02 06:45] LABS: EGFR Non-African American 94.1 (>60)
[2018-03-02] MEDS ORDERED: Omeprazole CAP* 20 MG PO SCH (07:30)
[2018-03-02] MEDS ORDERED: NS 0.9% 1000 ML* 1,000 ML IV SCH (07:45)
[2018-03-02] MEDS ORDERED: amLODIPine TAB* 5 MG PO ONE (08:06)
--- NOTE | 2018-03-02 08:32 | PN ---
Subjective Date of Service: 03/02/18 Interval History: Pt c/o "bloating", normal BM's. Epigastric abd pain worse with inspiration radiating to mid chest. Denies N/V , bu unable to eat x 3 days due to pain. Drinks 12 beers/day Objective Active Medications: Aspirin (Ecotrin Ec Tab*) 325 mg PO DAILY [facility] Last Admin: 03/02/18 05:30 Dose: 325 mg Folic Acid (Folvite Tab*) 1 mg PO DAILY [facility] Last Admin: 03/01/18 21:27 Dose: 1 mg Hydralazine HCl (Apresoline Iv*) 5 mg IV SLOW PU Q6H PRN PRN Reason: BLOOD PRESSURE Sodium Chloride (Ns 0.9% 1000 Ml*) 1,000 mls @ 100 mls/hr IV PER RATE [facility] Stop: 03/02/18 17:44 Lorazepam (Ativan Tab(*)) 1 - 2 mg PO .PER [place] PROTOCOL [facility]; Protocol Multivitamins/Minerals (Theragran/Minerals Tab*) 1 tab PO DAILY [facility] Last Admin: 03/01/18 21:27 Dose: 1 tab Nitroglycerin (Nitroglycerin 2% Oint*) 1 inch TOPICAL Q6H [facility]; Protocol Last Admin: 03/02/18 01:16 Dose: 1 inch Omeprazole (Prilosec Cap*) 40 mg PO 0730 [facility] Sucralfate (Carafate*) 1 gm PO TID [facility] Thiamine HCl (Vitamin B-1 Tab*) 100 mg PO DAILY [facility] Last Admin: 03/01/18 21:27 Dose: 100 mg Tramadol HCl (Ultram*) 25 mg PO Q12H PRN PRN Reason: PAIN Vital Signs - 8 hr 03/02/18 03/02/18 03/02/18 01:47 04:30 05:27 Temperature 98.0 F 98.7 F 97.9 F Pulse Rate 78 76 74 Respiratory 16 18 16 Rate Blood Pressure 154/95 145/85 143/77 (mmHg) O2 Sat by Pulse 97 97 97 Oximetry 03/02/18 07:51 Temperature 97.8 F Pulse Rate 81 Respiratory 20 Rate Blood Pressure 158/101 (mmHg) O2 Sat by Pulse 98 Oximetry Oxygen Devices in Use Now: None Appearance: 42 yo M in nAD, aAOx3 Eyes: No Scleral Icterus, PERRLA Ears/Nose/Mouth/Throat: NL Teeth, Lips, Gums, Mucous Membranes Moist Neck: NL Appearance and Movements; NL JVP, Trachea Midline Respiratory: Symmetrical Chest Expansion and Respiratory Effort, Clear to Auscultation Cardiovascular: NL Sounds; No Murmurs; No JVD, RRR Abdominal: - - tender in epigastrium, distended, soft, tympanic, no rebound, no guarding Lymphatic: No Cervical Adenopathy Extremities: No Edema, No Clubbing, Cyanosis Skin: No Rash or Ulcers Neurological: Alert and Oriented x 3, NL Muscle Strength and Tone Result Diagrams: 03/02/18 06:06 03/02/18 06:06 EKG Data: ekg ns no acute st t change seen Assess/Plan/Problems-Billing Assessment: 42 yr old wm with fhx of htn but morbid obesity chronic etoh dep 12 tall beers daily presented to er with epigastric pain radiating towards to throat for four days. this pain will be better with position trop has been neg but pt is still a cig smoker - Patient Problems (1) Epigastric abdominal pain Comment: ct of abd and abd US both neg lipase and lft neg---> ppi ordered as a trial will also start Carafate suspect ETOH related gastritis (2) HTN (hypertension) Comment: sbp was 170 tachycardia but after ativan prn for etoh withdraw and nitro paste went down to 150 start Norvasc, Echo ordered (3) EtOH dependence Comment: cont wam protocol (4) DVT prophylaxis Comment: low risk, ambulation (5) TSH elevation Comment: mild, in face of acute illness, to be repeated as outpatient in 4 weeks Status and Disposition: OBV
[2018-03-02] MEDS ORDERED: Acetaminophen TAB* 325 MG PO PRN (08:33)
[2018-03-02] MEDS ORDERED: Morphine VIAL* 4 MG/ML VIAL (1 ml vial) IV PRN (08:34)
[2018-03-02] MEDS: Thiamine TAB* 100 MG TAB PO SCH (08:38)
[2018-03-02] MEDS: Folic Acid TAB* 1 MG PO SCH (08:38)
[2018-03-02] MEDS: Multivitamins/Minerals TAB PO SCH (08:38)
[2018-03-02] MEDS: Sucralfate TAB* 1 GM PO SCH ×3 (08:38→15:53)
[2018-03-02] MEDS ORDERED: hydrALAZINE IV* 20 MG/ML VIAL IV SLOW PU PRN (09:10)
[2018-03-02] MEDS ORDERED: Regadenoson* 0.4 MG/5 ML SYRINGE ONE (13:14)
--- NOTE | 2018-03-02 15:17 | ECHO ---
Patient: [facility] Rec#: [id number] : 1975 Date: 03/02/2018 Age: 42y Height: 182.88 cm / 72.0 in Weight: 124.74 kg / 274.9 lbs Sex: M BSA: 2.44 Room#: [facility] Admit Date#: 03/01/2018 Type: Inpatient Referring: Imani Ames MD Reading: Maynor Castro MD Store Receiving Specialist: [facility]acey [facility]ch[facility] Indication: Chest pain BP: 143/77 HR: 80 Rhythm: NSR with PVCs Findings History: Morbid obesity, ETOH use, smoker, HTN. Technical Comments: The study quality is fair. Completed at 1030. Left Ventricle: The left ventricular chamber size is normal. Mild to moderate concentric left ventricular hypertrophy is observed. Left ventricular systolic function is at the lower limits of normal. The estimated ejection fraction is 50-55%. There is septal flattening of the interventricular septum consistent with right ventricular volume or pressure overload. Abnormal left ventricular diastolic function is observed. Abnormal left ventricular diastolic filling is observed, consistent with impaired relaxation. Left Atrium: The left atrium is mildly dilated. Right Ventricle: Moderator Band present. The right ventricle is moderately dilated. The right ventricle wall thickness is mildly increased. The right ventricular global systolic function is low normal. Right Atrium: The right atrium is moderately dilated. Aortic Valve: The aortic valve is trileaflet. There is no evidence of aortic valve thickening. There is no evidence of aortic regurgitation. There is no evidence of aortic stenosis. Mitral Valve: There is mitral annular calcification. The mitral valve leaflets are mildly thickened. There is a trace of mitral regurgitation. There is no evidence of mitral stenosis. Tricuspid Valve: The tricuspid valve leaflets are normal. There is trace tricuspid regurgitation. Unable to estimate the right ventricular systolic pressure. There is no tricuspid stenosis. Pulmonic Valve: The pulmonic valve appears normal. There is a trace pulmonic regurgitation. There is no pulmonic stenosis. Pericardium: There is no significant pericardial effusion. A pericardial fat pad is visualized. Aorta: There is mild dilatation of the ascending aorta. The aortic arch is not well visualized. The aortic root is normal in size. Pulmonary Artery: The main pulmonary artery appears normal. Venous: The inferior vena cava appears normal in size. There is a greater than 50% respiratory change in the inferior vena cava dimension. Summary: There are no significant changes when compared to the previous study done on 07/02/2012, no overt sig changes. Conclusions Mild to moderate concentric left ventricular hypertrophy is observed. Left ventricular systolic function is at the lower limits of normal. The estimated ejection fraction is 50-55%. There is septal flattening of the interventricular septum consistent with right ventricular volume or pressure overload. Abnormal left ventricular diastolic function is observed. The left atrium is mildly dilated. There is a trace of mitral regurgitation. There is trace tricuspid regurgitation. Unable to estimate the right ventricular systolic pressure. There is a trace pulmonic regurgitation. There is mild dilatation of the ascending aorta. Measurements Name Value Normal Range RVIDd (AP) 2D 3.5 cm (0.9 - 2.6) RVDdMajor (2D) 5.1 cm (2.2 - 4.4) RVAW (2D) 0.7 cm (0.2 - 0.5) RAd ISD 4CH 5.7 cm (3.4 - 4.9) RA (A4C)W 4.8 cm (2.9 - 4.6) IVSd (2D) 1.3 cm (0.6 - 1) LVPWd (2D) 1.3 cm (0.6 - 1) LVIDd (2D) 4.6 cm (3.6 - 5.4) LVIDs (2D) 3.6 cm - LV FS (2D) 20 % (25 - 45) Aortic Annulus 2.6 cm (1.4 - 2.6) Ao root diameter (2D) 2.6 cm (2.1 - 3.5) Ascending Ao 3.7 cm (2.1 - 3.4) LA dimension (AP) 2D 3.7 cm (2.3 - 3.8) LAd ISD 4CH 5.5 cm (2.9 - 5.3) LA ISD 4CH W 4.6 cm (2.5 - 4.5) Name Value Normal Range LA ESV SP 4CH (A/L) 66 ml - LA ESV SP 2CH (A/L) 59 ml - LA ESV BP (A/L) 64 ml - LA ESV BP (A/L) index 30 ml/m2 - LA ESV SP 4CH (MOD) 54 ml - LA ESV SP 2CH (MOD) 56 ml - Name Value Normal Range MV E-wave Vmax 0.54 m/sec - MV deceleration time 235.4 msec - MV A-wave Vmax 0.7 m/sec - MV E:A ratio 0.78 ratio - LV septal e' Vmax 0.07 m/sec - LV lateral e' Vmax 0.07 m/sec - LV E:e' septal ratio 7.14 ratio - LV E:e' lateral ratio 7.14 ratio - Name Value Normal Range AV Vmax 1.1 m/sec - AV VTI 20.11 cm - AV peak gradient 4.64 mmHg - AV mean gradient 2.57 mmHg - LVOT Vmax 0.9 m/sec - LVOT VTI 15.07 cm - LVOT peak gradient 3.27 mmHg - LVOT mean gradient 1.49 mmHg - Name Value Normal Range IVC diameter 1.9 cm - Name Value Normal Range PV Vmax 0.85 m/sec - PV peak gradient 2.9 mmHg -
[2018-03-02] MEDS ORDERED: Furosemide IV* 10 MG/ML VIAL (40 MG) IV ONE (15:27)
[2018-03-02] MEDS ORDERED: Metoprolol Tartrate TAB* 25 MG PO ONE (15:28)
[2018-03-02] MEDS ORDERED: LORazepam TAB(*) 1 MG PO PRN (15:31)
[2018-03-02] MEDS ORDERED: Lisinopril TAB* 5 MG PO SCH (17:00)
[2018-03-02 17:28] VITALS: BP 140/95
[2018-03-02] MEDS ORDERED: Metoprolol Tartrate TAB* 25 MG PO SCH (21:00)
--- NOTE | 2018-03-03 13:26 | DS ---
CC: [facility] in [place] * DISCHARGE SUMMARY: DATE OF ADMISSION: 03/01/18 DATE OF DISCHARGE: 03/02/18 PRIMARY CARE PROVIDER: The patient is going to be following with [facility] in [place], the phone number is [phone]. DISCHARGE DIAGNOSES: 1. Chest pain/epigastric pain likely due to alcohol related gastritis. 2. Abdominal distension, resolved after the patient passed flatus during treadmill stress test. 3. Uncontrolled hypertension. 4. Evidence of volume/pressure overload on echocardiogram. 5. Alcohol abuse. MEDICATIONS AT DISCHARGE: 1. Prilosec 20 mg daily. 2. Lorazepam 0.5 mg up to 3 times a day p.r.n. anxiety. The patient was prescribed 15 tablets. I-STOP was checked and the patient has not had any lorazepam prescribed in the past 6 months. 3. Metoprolol tartrate 25 mg b.i.d. 4. Lisinopril 2.5 mg daily. LABORATORY DATA AND STUDIES PERFORMED DURING THE HOSPITAL STAY: On 03/02/18, white blood cell count 9.3, hemoglobin 15.6, hematocrit 44, MCV of 97, platelets of 242. D-dimer was still 200. Sodium was 132, potassium of 4.0, chloride 99, carbon dioxide 25, BUN 9, creatinine 0.88. Liver function test unremarkable. Troponin of 0 to 0.01. TSH was slightly elevated at 7.08 and it is recommended for the patient to have it rechecked in approximately 4 to 6 weeks. The patient's cholesterol profile showed triglycerides of 105, cholesterol total 220, LDL of 148, and HDL of 51. The patient's transthoracic echocardiogram obtained on 03/02/18 shows mild to moderate concentric LVH. Left ventricular systolic function in the lower limits of normal. The estimated EF of 50% to 55%. There is septal flattening of the interventricular septum consistent with right ventricular volume or pressure overload. Of note, left ventricular diastolic function observed. The left atrium is mildly dilated. There is trace of mitral regurgitation and trace tricuspid regurgitation. Mild dilatation of the ascending aorta. Nuclear medicine cardiac stress test documented on 03/02/18 showed EF of 53% and slightly decreased ejection fraction and findings suggestive of small area of ischemia in the cardiac apex and inferior wall. It was assessed as "low risk." CT of the abdomen and pelvis obtained on 03/01/18, impression "no evidence of acute findings or cause of the patient's abdominal pain. Hepatic steatosis." Gallbladder ultrasound obtained on 03/01/18 impression "no acute sonographic pathology." HOSPITALIZATION COURSE: Bahman Garibay is a 42-year-old male who drinks approximately 12-pack beer a day and who presented to the hospital complaining of epigastric abdominal pain radiating to his chest. Due to the patient's history of alcohol abuse and obesity, the patient was placed on overnight observation on telemetry monitored bed to rule out cardiac ischemia as the source of the pain. The patient's troponins continued to be negative throughout his hospital stay and EKG was unremarkable. Furthermore, the pain was worsening with eating and improvement with not eating. It was not related to exercise. In fact treadmill exercise stress test improved the pain after the patient passed gas. Suspect the patient's pain was related to abdominal distension and abdominal gas as well as alcoholic gastritis. The patient was placed on Prilosec and responded very well. He was able to tolerate p.o. diet at discharge. In regards to the patient's cardiac evaluation, his echocardiogram showed volume and pressure overload. The patient was noted to have possibility of small areas of ischemia at the apex. Once again his symptoms were not correlating with the findings of ischemia on the stress test. His EKG was unremarkable and his laboratory values shows no evidence of cardiac abnormalities. At this point, it is possible that the apical abnormality could be related to an artifact and attenuation. Nevertheless, the area is not amenable for intervention and once again the patient was asymptomatic from a cardiac standpoint. During the patient's hospital stay, we had a long discussion with regard to alcohol cessation. The patient was recommended to stop drinking and informed about alcoholic gastritis as well possibility of liver failure if he continues to drink. The patient was noted to have systolic pressures into 180s and 160s and he was started on metoprolol as well as lisinopril with pressures in the 150s by the time of discharge. He was also placed on Prilosec for gastritis. It was noted that patient has no health insurance and [employer] job titles saw the patient in evaluation and referral to arrange insurance at discharge. The patient is planning to go to a medical office in [place] that can be reimbursed on a sliding scale basis. The patient stated that his father will help him with paying for the medications for the time being. At discharge, the patient's epigastric abdominal tenderness almost resolved. He tolerated diet and is going to be discharged home with recommendation to follow up with his primary care provider in [place] medical office. Please note that this is a short summary of the patient's hospitalization. Please refer to further medical records for details. TIME SPENT: Approximately 40 minutes was spent on the patient's discharge. [id number]/[facility] #: [id number] CHARLENE
== END 2018-03-02 20:24 | disposition home or self-care (01) ==
LOC: ED 13:20 → MEDTELE 19:36
PROVIDERS: ADMIT Internal Medicine; ATTEND Internal Medicine
DX: R07.9 Chest pain, unspecified (principal); R10.13 Epigastric pain; I10 Essential (primary) hypertension; E66.01 Morbid (severe) obesity due to excess calories; R14.0 Abdominal distension (gaseous); F17.210 Nicotine dependence, cigarettes, uncomplicated; Z87.898 Personal history of other specified conditions; F10.10 Alcohol abuse, uncomplicated
CPT/HCPCS: 36415; 71046; 74177; 76705; 78452; 80053; 80061; 81003; 82550; 83036; 83605; 83690; 83735; 83880; 84443; 84484; 85025; 85379; 85610; 86140; 93005; 93017; 93306; 96361; 96374; 96375; 96376; 99284; A9270-GY; A9505; G0378; J0360; J1940; J2785; J3490; Q9967

== ENCOUNTER 2018-03-07 07:34 | Emergency (ER) | payer SELFPAY ==
[2018-03-07 07:52] VITALS: BP 174/108
--- NOTE | 2018-03-07 08:23 | UC ---
Cardiac HPI - HPI Summary HPI Summary: 42yo with history of GERD, HTN, steatohepatitis, heavy smoking and alcohol use, who was discharged from [facility] [place], [place] 03/02/18 after admission for chest pain. reports worsening chest pain which is constant, not related to activity. "I know its gas" he states. He states he is taking all his medications. He reports having left arm and left leg numbness that started yesterday at about noon. He denies trauma, denies weakness or gait disturbance. - History of Current Complaint Chief Complaint: UCChestPain Stated Complaint: CHEST PAIN Time Seen by Provider: 03/07/18 08:12 Hx Obtained From: Patient Onset/Duration: Sudden Onset, Lasting Days Initial Severity: Moderate Current Severity: Severe Pain Intensity: 7 Chest Pain Location: Diffuse Character: Burning Aggravating Factor(s): Nothing Alleviating Factor(s): Other - passing gas Associated Signs & Symptoms: Positive: Chest Pain, Tingling, Nausea/Vomiting, Abdominal Pain - Risk Factors Pulmonary Embolism Risk Factors: Negative Cardiac Risk Factors: Hypertension, Smoking Atrial Fibrillation: Hypertension TAD Risk Factors: Negative AMI/ACS Risk Factors: Hypertension, Smoking - Allergy/Home Medications Allergies/Adverse Reactions: Allergies Allergy/AdvReac Type Severity Reaction Status Date / Time No Known Allergies Allergy Verified 03/07/18 07:45 PMH/Surg Hx/FS Hx/Imm Hx Previously Healthy: Yes Cardiovascular History: Hypertension Other History Of: Negative For: Anticoagulant Therapy - Surgical History Surgical History: Yes Surgery Procedure, Year, and Place: RIGHT pinky finger - Family History Known Family History: Positive: Hypertension Negative: Cardiac Disease, Diabetes - Social History Alcohol Use: Daily Alcohol Amount: 12 pack per day Substance Use Type: Marijuana Substance Use Comment - Amount & Last Used: 1-2 TIMES/WEEK Smoking Status (MU): Current Every Day Smoker Type: Cigarettes Amount Used/How Often: 1.5-2 ppd Length of Time of Smoking/Using Tobacco: 23 years Have You Smoked in the Last Year: Yes Household Exposure Type: Cigarettes - Immunization History Most Recent Tetanus Shot: Up to date Review of Systems All Other Systems Reviewed And Are Negative: Yes Cardiovascular: Positive: Chest Pain Gastrointestinal: Positive: Abdominal Pain Neurovascular: Positive: Decreased Sensation Neurological: Positive: Paresthesia Physical Exam Triage Information Reviewed: Yes Appearance: Well-Appearing, Well-Nourished, Obese Vital Signs: Initial Vital Signs Temp 98.4 F 03/07/18 07:46 Pulse 85 03/07/18 07:46 Resp 20 03/07/18 07:46 BP 174/108 03/07/18 07:46 Pulse Ox 97 03/07/18 07:46 Vital Signs Reviewed: Yes Eyes: Positive: Conjunctiva Clear ENT: Positive: Hearing grossly normal, Pharynx normal, Uvula midline Neck: Positive: Supple, Nontender, No Lymphadenopathy Respiratory: Positive: Chest non-tender, Lungs clear, Normal breath sounds Cardiovascular: Positive: RRR, No Murmur, Pulses Normal, Brisk Capillary Refill Abdomen Description: Positive: No Organomegaly, Soft, Hepatomegaly, Other: - tender RUQ Bowel Sounds: Positive: Present Musculoskeletal: Positive: Strength Intact, ROM Intact, No Edema Neurological: Positive: Alert, Muscle Tone Normal, Other: - CN II-XII grossly intact, decreased sensory on right hand and right leg. Strength is preserved, gait wnl. Psychological: Positive: Age Appropriate Behavior Skin Exam: Normal - Assessment/Plan Course Of Treatment: patient with history of HTN, obesity, heavy alcohol and tobacco use, GERD who c/o of new onset paresthesias. Transferred to ER via ambulance. - Clinical Impression Provider Diagnoses: Chest Pain. Paresthesias on Right upper and right lower extremity. HTN. Steatohepatosis Discharge - Sign-Out/Discharge Documenting (check all that apply): Patient Departure All imaging exams completed and their final reports reviewed: No Studies - Discharge Plan Condition: Guarded Disposition: TRANS HIGHER LVL OF CARE FAC Referrals: No Primary Care Phys,NOPCP [Primary Care Provider] - - Billing Disposition and Condition Condition: GUARDED Disposition: Trans Higher Lvl of Care Fac
== END 2018-03-07 08:49 | disposition short-term general hospital (02) ==
LOC: UCEAST 07:34
DX: R07.9 Chest pain, unspecified (principal); R20.2 Paresthesia of skin; K75.81 Nonalcoholic steatohepatitis (NASH); I10 Essential (primary) hypertension; R11.2 Nausea with vomiting, unspecified; R10.9 Unspecified abdominal pain; F17.210 Nicotine dependence, cigarettes, uncomplicated
CPT/HCPCS: 93005; 99213; G0463

== ENCOUNTER 2018-03-07 08:57 | Emergency (ER) | payer SELFPAY ==
[2018-03-07] MEDS ORDERED: Sucralfate TAB* 1 GM PO ONE (09:12)
[2018-03-07] MEDS ORDERED: NS 0.9% 1000 ML* 1,000 ML IV ONE (09:12)
[2018-03-07] MEDS ORDERED: Famotidine TAB* 20 MG PO ONE (09:12)
[2018-03-07] MEDS ORDERED: Pantoprazole IV* 40 MG IV ONE (09:12)
[2018-03-07] MEDS ORDERED: LORazepam INJ* 2 MG/ML 1 ML VIAL IV PUSH ONE (09:16)
[2018-03-07 09:41] LABS: ABS Basophils 0.1 10^3/ul (0-0.2); ABS Eosinophils 0 10^3/ul (0-0.6); ABS Monocytes 0.6 10^3/ul (0-0.8); ABS Neutrophils 6.8 10^3/ul (1.5-7.7); ABS Nucleated RBC 0.1 10^3/ul; Eosinophil % 0.6 % (0-6); Hematocrit 47 % (42-52); Hemoglobin 16.4 g/dl (14.0-18.0); Lymphocyte % 11.5 % (25-47); Mean Corpuscular HGB Conc 35 g/dl (31-36); Mean Corpuscular Hemoglobin 34 pg (27-31); Mean Corpuscular Volume 98 fL (80-94); Mean Platelet Volume 6.7 fL (7.4-10.4); Nucleated Red Blood Cells % 0.7; Platelet Count 261 10^3/ul (150-450); Red Blood Count 4.83 10^6/ul (4.00-5.40); Red Cell Distribution Width 12 % (10.5-15); White Blood Count 8.5 10^3/ul (3.5-10.8)
[2018-03-07 09:59] LABS: EGFR Non-African American 86.1 (>60)
--- NOTE | 2018-03-07 10:02 | ED ---
Abdominal Pain/Male - HPI Summary HPI Summary: Pt is a 42 y/o male brought in by EMS who presents to the ED c/o abdominal pressure. He was sent here by the , and requested a gas pill. Pt feels distended and has lots of abdominal pressure, which is alleviated by lying flat and worsened by deep breaths. He also c/o left leg numbness from the knee down, and feels anxious. Pt denies any back pain. He is a heavy drinker, and recently has cut back from drinking a 30 pack per day to a 12 pack. Pt is aware that he has a substance abuse problem. Pt is hypertensive, with his BP 178/108 while in the room. He smokes ppd. - History of Current Complaint Stated Complaint: CHEST PAIN Hx Obtained From: Patient Onset/Duration: Gradual Onset, Lasting Days - Approx. 1 week Timing: Constant Severity Currently: Moderate Pain Intensity: 7 Pain Scale Used: 0-10 Numeric Location: Diffuse Radiates: No Character: Other: - Pressure, bloating Aggravating Factor(s): Deep Breaths Alleviating Factor(s): Position - Lying flat Associated Signs And Symptoms: Positive: Other - NEGATIVE: back pain - Allergies/Home Medications Allergies/Adverse Reactions: Allergies Allergy/AdvReac Type Severity Reaction Status Date / Time No Known Allergies Allergy Verified 03/07/18 07:45 PMH/Surg Hx/FS Hx/Imm Hx Endocrine/Hematology History: Denies: Hx Anticoagulant Therapy, Hx Diabetes, Hx Thyroid Disease Cardiovascular History: Reports: Hx Hypertension Denies: Hx Angina, Hx Coronary Artery Disease, Hx Hypercholesterolemia, Hx Myocardial Infarction, Hx Pacemaker/ICD, Hx Valvular Heart Disease Respiratory History: Denies: Hx Asthma, Hx Chronic Obstructive Pulmonary Disease (COPD) GI History: Denies: Hx Ulcer History: Denies: Hx Renal Disease Sensory History: Denies: Hx Contacts or Glasses, Hx Hearing Aid Opthamlomology History: Denies: Hx Contacts or Glasses Neurological History: Denies: Hx Dementia, Hx Seizures Psychiatric History: Reports: Hx Anxiety, Hx Substance Abuse - ETOH - Surgical History Surgery Procedure, Year, and Place: RIGHT pinky finger - Immunization History Date of Tetanus Vaccine: 2002 Date of Influenza Vaccine: none Infectious Disease History: No Infectious Disease History: Denies: Hx Clostridium Difficile, Hx Hepatitis, Hx Human Immunodeficiency Virus (HIV), Hx of Known/Suspected MRSA, Hx Shingles, Hx Tuberculosis, Hx Known/ Suspected VRE, Hx Known/Suspected VRSA, History Other Infectious Disease, Traveled Outside the [place] in Last 30 Days - Family History Known Family History: Positive: Hypertension, Other - NEGATIVE: substance abuse Negative: Cardiac Disease, Diabetes - Social History Alcohol Use: Daily Alcohol Amount: 12 pack per day Hx Substance Use: Yes Substance Use Type: Reports: Marijuana Substance Use Comment - Amount & Last Used: 1-2 TIMES/WEEK Hx Tobacco Use: Yes Smoking Status (MU): Heavy Every Day Tobacco Smoker Type: Cigarettes Amount Used/How Often: 1.5-2 ppd Length of Time of Smoking/Using Tobacco: 23 years Have You Smoked in the Last Year: Yes Review of Systems Positive: Other - Abdominal pressure "gas" Negative: Myalgia - Back pain Positive: Numbness - Left leg All Other Systems Reviewed And Are Negative: Yes Physical Exam - Summary Physical Exam Summary: Appearance: Well appearing, no pain distress, obese Skin: warm, dry, reflects adequate perfusion, telangiectasia of face Head/face: normal Eyes: EOMI, GLORIA ENT: mucous membranes moist Neck: supple, non-tender Respiratory: CTA, breath sounds present Cardiovascular: RRR, pulses symmetrical Abdomen: non-tender, soft distention Bowel Sounds: present Musculoskeletal: normal, strength/ROM intact Neuro: normal, sensory motor intact, A&Ox3 Psych: anxious Triage Information Reviewed: Yes Vital Signs On Initial Exam: Initial Vitals Temp Pulse Resp BP Pulse Ox 98.6 F 83 18 180/114 100 03/07/18 08:58 03/07/18 08:58 03/07/18 08:58 03/07/18 08:58 03/07/18 08:58 Vital Signs Reviewed: Yes Diagnostics - Vital Signs Vital Signs Temp Pulse Resp BP Pulse Ox 03/07/18 09:27 16 03/07/18 09:04 82 16 95 03/07/18 09:02 83 18 178/108 98 03/07/18 08:58 98.6 F 83 18 180/114 100 - Laboratory Lab Results: Lab Results 03/07/18 03/07/18 03/07/18 Range/Units 09:30 09:30 09:30 WBC 8.5 (3.5-10.8) 10^3/ul RBC 4.83 (4.00-5.40) 10^6/ul Hgb 16.4 (14.0-18.0) g/dl Hct 47 (42-52) % MCV 98 H (80-94) fL MCH 34 H (27-31) pg MCHC 35 (31-36) g/dl RDW 12 (10.5-15) % Plt Count 261 (150-450) 10^3/ul MPV 6.7 L (7.4-10.4) fL Neut % (Auto) 80.1 (38-83) % Lymph % (Auto) 11.5 L (25-47) % [place] % (Auto) 6.6 (0-7) % Eos % (Auto) 0.6 (0-6) % Baso % (Auto) 1.2 (0-2) % Absolute Neuts (auto) 6.8 (1.5-7.7) 10^3/ul Absolute Lymphs (auto) 1.0 (1.0-4.8) 10^3/ul Absolute Monos (auto) 0.6 (0-0.8) 10^3/ul Absolute Eos (auto) 0 (0-0.6) 10^3/ul Absolute Basos (auto) 0.1 (0-0.2) 10^3/ul Absolute Nucleated RBC 0.1 10^3/ul Nucleated RBC % 0.7 Sodium 135 (135-145) mmol/L Potassium 4.8 (3.5-5.0) mmol/L Chloride 98 L (101-111) mmol/L Carbon Dioxide 29 (22-32) mmol/L Anion Gap 8 (2-11) mmol/L BUN 12 (6-24) mg/dL Creatinine 0.95 (0.67-1.17) mg/dL Est GFR ( Amer) 104.2 (>60) Est GFR (Non-Af Amer) 86.1 (>60) BUN/Creatinine Ratio 12.6 (8-20) Glucose 128 H (70-100) mg/dL Lactic Acid 1.1 (0.5-2.0) mmol/L Calcium 9.5 (8.6-10.3) mg/dL Total Bilirubin 0.50 (0.2-1.0) mg/dL AST 24 (13-39) U/L ALT 30 (7-52) U/L Alkaline Phosphatase 58 (34-104) U/L Troponin I Pending Total Protein 7.4 (6.4-8.9) g/dL Albumin 4.3 (3.2-5.2) g/dL Globulin 3.1 (2-4) g/dL Albumin/Globulin Ratio 1.4 (1-3) Lipase 18 (11.0-82.0) U/L Result Diagrams: 03/07/18 09:30 03/07/18 09:30 Lab Statement: Any lab studies that have been ordered have been reviewed, and results considered in the medical decision making process. - Radiology CXR Radiology Interpretation Completed By: Radiologist - NO ACTIVE CARDIOPULMONARY DISEASED. ED physician reviewed radiology report. - EKG 9:11 Cardiac Rate: NL - 79 bpm EKG Rhythm: Sinus Rhythm ST Segment: Normal Summary of EKG Findings: Nl axis, nl interval Re-Evaluation - Re-Evaluation First Eval Re-Evaluation Time: 10:39 Change: Improved Comment: Pt feels much better. BP now 145/90. Abdominal Pain Fem Course/Dx - Course Course Of Treatment: 42-year-old heavy drinker presents with upper abdominal discomfort and elevated blood pressure. He recently underwent an extensive workup for the same including CT the abdomen, ultrasound of the gallbladder, cardiac rule out, etc. His blood pressure came down significantly with IV Ativan and he felt much better with oral GI medications. He is encouraged to cut back on his drinking and was given local resources to help with this. He is also given blood pressure control in the form of oral 5 mg Norvasc. He see his primary care physician on as scheduled or sooner if needed. He is discharged in good condition. - Diagnoses Differential Diagnosis/HQI/PQRI: Constipation, Gall Bladder Disease, Pancreatitis, Pneumonia, Other - Gastritis, peptic ulcer disease Provider Diagnoses: Alcoholism, Gastritis, Elevated blood pressure reading Discharge - Sign-Out/Discharge Documenting (check all that apply): Patient Departure - Discharge - Discharge Plan Condition: Improved Disposition: HOME Prescriptions: Amlodipine Besylate [Norvasc 5 mg tab] 5 mg PO DAILY #30 tab Famotidine TAB* [Pepcid 20 MG TAB*] 20 mg PO BID #30 tab Sucralfate [Carafate] 1 gm PO QID #40 tablet Patient Education Materials: Gastritis (ED), Alcohol Use Disorder (ED) Referrals: No Primary Care Phys,NOPCP [Primary Care Provider] - Additional Instructions: Follow-up with [facility] on as scheduled. Call sooner for an appointment if desired. Return to the ER with worsening, uncontrolled blood pressure, chest pain/shortness of breath, worse or other concerns as discussed. Cut back on your smoking and especially your alcohol drinking. You have been provided with resources in the local community to help you with this. Double your omeprazole for the next 5 days. - Billing Disposition and Condition Condition: IMPROVED Disposition: Home - Attestation Statements Document Initiated by Eleonoraibe: Yes Documenting Scribe: Echo Gregory Provider For Whom Eleonoraibe is Documenting (Include Credential): Raphael Yuen MD Scribe Attestation: Echo Srinivasan scribed for Raphael Yuen MD on 03/07/18 at 1151. Scribe Documentation Reviewed: Yes Provider Attestation: The documentation as recorded by the Echo castaneda accurately reflects the service I personally performed and the decisions made by Raphael joiner MD
[2018-03-07 10:38] VITALS: BP 145/90
== END 2018-03-07 11:03 | disposition home or self-care (01) ==
LOC: ED 08:57
DX: F10.20 Alcohol dependence, uncomplicated (principal); R03.0 Elevated blood-pressure reading, without diagnosis of hypertension; K29.70 Gastritis, unspecified, without bleeding; F17.210 Nicotine dependence, cigarettes, uncomplicated
CPT/HCPCS: 36415; 71045; 80053; 83605; 83690; 83880; 84484; 85025; 93005; 96374; 96375; 99283; A9270-GY; J2060

== ENCOUNTER 2021-06-19 15:51 | Observation (INO) ==
[2021-06-19] MEDS ORDERED: Lactated Ringers 1000 ml BAG 1,000 ML IV ONE ×2 (17:06→18:33)
[2021-06-19] MEDS ORDERED: Ondansetron 4 mg VIAL 2 MG/ML 2 ml VIAL IV ONE (17:06)
[2021-06-19 17:21] LABS: ABS Basophils 0.1 10^3/ul (0-0.2); ABS Lymphocytes 0.8 10^3/ul (1.0-4.8); ABS Monocytes 0.8 10^3/ul (0-0.8); ABS Neutrophils 8.4 10^3/ul (1.5-7.7); Eosinophil % 0.1 %; Hematocrit 52 % (42-52); Hemoglobin 18.5 g/dL (14.0-18.0); Mean Corpuscular HGB Conc 36 g/dL (31-36); Mean Corpuscular Hemoglobin 36 pg (27-31); Mean Corpuscular Volume 101 fL (80-94); Mean Platelet Volume 7.6 fL (7.4-10.4); Platelet Count 211 10^3/uL (150-450); Red Blood Count 5.18 10^6 /uL (4.18-5.48); Red Cell Distribution Width 13 % (10-15)
[2021-06-19 17:38] LABS: ALT 37 U/L (7-52); AST 35 U/L (13-39); Albumin 4.2 g/dL (3.2-5.2); Albumin/Globulin Ratio 1.6 (1-3); Alkaline Phosphatase 54 U/L (35-149); Anion Gap 9 mmol/L (2-11); Blood Urea Nitrogen 10 mg/dL (6-24); C Reactive Protein 22.24 mg/L (<8.01); CO2 Carbon Dioxide 26 mmol/L (22-32); Calcium 9.3 mg/dL (8.6-10.3); Chloride 96 mmol/L (101-111); Globulin 2.6 g/dL (2-4); Glucose 93 mg/dL (70-100); Lipase 21 U/L (11.0-82.0); Potassium 4.3 mmol/L (3.5-5.0); Sodium 131 mmol/L (135-145); Total Protein 6.8 g/dL (6.4-8.9); eGFR CKD-EPI 87.6 (>60)
[2021-06-19 17:44] LABS: HCG Pregnancy < 0.60 mIU/mL
[2021-06-19] MEDS ORDERED: Iohexol 300 (CONTRAST) 10 ML SDV IV ONE (17:54)
[2021-06-19 18:23] LABS: Urine Appearance Cloudy; Urine Bilirubin Negative (Negative); Urine Blood Negative (Negative); Urine Color Amber; Urine Glucose Negative (Negative); Urine Ketones 1+ (Negative); Urine Nitrite Negative (Negative); Urine Protein 2+(100 mg/dL) (Negative); Urine Specific Gravity 1.026 (1.002-1.030); Urine Urobilinogen Positive (Negative)
[2021-06-19 18:29] LABS: Urine Bacteria 1+ (Absent); Urine Granular Casts Present (Absent); Urine Red Blood Cell Trace(0-2/hpf) (Absent); Urine Squamous Epithelial Cell Present (Absent); Urine White Blood Cell 1+(6-10/hpf) (Absent)
[2021-06-19] MEDS ORDERED: Lorazepam PYXIS KEY PRN (22:03)
[2021-06-19] MEDS ORDERED: LORazepam 2 mg VIAL 1 ml IV PUSH ONE (22:03)
[2021-06-19] MEDS ORDERED: Magnesium Hydroxide LIQ 30 ML UDC PO PRN (23:24)
[2021-06-19] MEDS ORDERED: Al Hydrox/Mg Hydrox/Simet LIQ 30 ML UDC PO PRN (23:24)
[2021-06-19] MEDS ORDERED: Ondansetron 4 mg VIAL 2 MG/ML 2 ml VIAL IV PRN (23:24)
[2021-06-19] MEDS ORDERED: Thiamine 100 MG/ML 2 ml VIAL (200 mg) IM ONE (23:30)
[2021-06-19] MEDS ORDERED: LORazepam 2 mg VIAL 1 ml IV PUSH SCH (23:45)
[2021-06-20] MEDS ORDERED: metroNIDAZOLE IV 500 MG/100ML - ED ONCE IVPB ONE (01:00)
[2021-06-20] MEDS: Multivitamins/Minerals TAB PO SCH ×2 (03:52→09:48)
[2021-06-20] MEDS: Enoxaparin 40 MG/0.4 ML SYR SUBCUT SCH ×2 (03:55→23:40)
[2021-06-20] MEDS ORDERED: Thiamine 100 MG/ML 2 ml VIAL (200 mg) IM ONE (04:30)
[2021-06-20] MEDS ORDERED: NS 0.9% 1000 ml BAG 1,000 ML IV SCH (08:45)
[2021-06-20] MEDS: Pantoprazole VIAL 40 MG VIAL IV SCH ×2 (09:48→21:13)
[2021-06-20] MEDS: metroNIDAZOLE IV 500 MG/100ML 500 MG/100 ML BAG IVPB SCH ×2 (16:09→21:18)
[2021-06-20] MEDS: Ciprofloxacin 400mg IVPREMIX 400 MG/200 ML BAG IVPB SCH (17:41)
[2021-06-21] MEDS: Ciprofloxacin 400mg IVPREMIX 400 MG/200 ML BAG IVPB SCH (02:36)
[2021-06-21] MEDS: metroNIDAZOLE IV 500 MG/100ML 500 MG/100 ML BAG IVPB SCH (05:17)
[2021-06-21 05:27] LABS: ABS Basophils 0.1 10^3/ul (0-0.2); ABS Eosinophils 0.1 10^3/ul (0-0.6); ABS Monocytes 0.5 10^3/ul (0-0.8); ABS Neutrophils 3.5 10^3/ul (1.5-7.7); Eosinophil % 1.5 %; Hematocrit 43 % (42-52); Hemoglobin 15.1 g/dL (14.0-18.0); Lymphocyte % 20.4 %; Mean Corpuscular HGB Conc 35 g/dL (31-36); Mean Corpuscular Hemoglobin 35 pg (27-31); Mean Corpuscular Volume 101 fL (80-94); Mean Platelet Volume 7.4 fL (7.4-10.4); Nucleated Red Blood Cells % 0.1; Platelet Count 149 10^3/uL (150-450); Red Blood Count 4.28 10^6 /uL (4.18-5.48); Red Cell Distribution Width 13 % (10-15); White Blood Count 5.1 10^3/uL (3.5-10.8)
[2021-06-21 05:48] LABS: Albumin 3.5 g/dL (3.2-5.2); Albumin/Globulin Ratio 1.6 (1-3); Calcium 8.5 mg/dL (8.6-10.3); Globulin 2.2 g/dL (2-4); Potassium 3.7 mmol/L (3.5-5.0); Total Bilirubin 0.8 mg/dL (0.2-1.0); Total Protein 5.7 g/dL (6.4-8.9); eGFR CKD-EPI 114.2 (>60)
[2021-06-21 07:19] VITALS: BP 158/86
[2021-06-21] MEDS ORDERED: Ondansetron ODT 4 mg TAB 4 MG TAB SL PRN (07:54)
[2021-06-21] MEDS: Pantoprazole VIAL 40 MG VIAL IV SCH (08:25)
[2021-06-21] MEDS: Multivitamins/Minerals TAB PO SCH (08:26)
== END 2021-06-21 09:20 | disposition left against medical advice (07) | DRG 249 ==
LOC: ED 15:51 → SUATTDRO 23:24 → INTOOBSV 23:24 → EDHOLD 23:24 → MED 06-20 09:36
PROVIDERS: ADMIT Internal Medicine; ATTEND Internal Medicine